=== PATIENT | female | born 1945 | race American Indian/Alaskan Native ===

== ENCOUNTER 2016-05-30 06:23 | Day surgery (SDC) | payer MEDICARE, BC ==
[2016-05-30] MEDS ORDERED: Bupivacaine 0.5% 30 ML SDV ONE (06:36)
[2016-05-30] MEDS ORDERED: ceFAZolin 1 GM in Premix Bag 1 BAG IV ONE (07:00)
[2016-05-30] MEDS ORDERED: Lactated Ringers 1,000 ML IV SCH (07:00)
[2016-05-30] MEDS ORDERED: Propofol 200 MG/20 ML SDV ONE (07:32)
[2016-05-30] MEDS ORDERED: fentaNYL 100 MCG/2 ML SDV ONE (07:32)
[2016-05-30] MEDS ORDERED: Lidocaine 0.5% 50 ML SDV ONE (07:32)
[2016-05-30] MEDS ORDERED: Povidone-Iodine 10% Soln 118.25 ML Bottle ONE (07:54)
[2016-05-30] MEDS ORDERED: Ondansetron 4 MG/2 ML SDV ONE (07:56)
--- NOTE | 2016-05-30 08:43 | OR ---
DATE OF PROCEDURE: 05/30/2016 PREOPERATIVE DIAGNOSIS: Left ring finger trigger finger. POSTOPERATIVE DIAGNOSIS: Left ring finger trigger finger. PROCEDURE: Left ring finger trigger finger release. SENIOR BENEFITS MANAGER: Ml Paiz NP. ANESTHESIA: O'Neill block with conscious sedation. ESTIMATED BLOOD LOSS: Zero. FLUID: Lactated Ringer solution. COMPLICATIONS: None. SPECIMEN: None. DISCHARGE DISPOSITION: Stable to PACU. TOURNIQUET TIME: 14 minutes. INDICATIONS: The patient was seen preoperatively in the clinic. She has had many months of triggering of her left ring finger. During the exam, I was unable to get trigger, but the A1 nodule was very palpable. She tried nonsteroidal anti-inflammatories, as well as range of motion exercises, but was not have any relief. Risks and benefits of the procedure were explained to the patient and informed consent was obtained. DETAILS OF PROCEDURE: The patient was seen preoperatively by myself and the Anesthesia staff in the preop holding area, where the operative site was marked. She was brought to the operative suite by the Anesthesia staff, where O'Neill block with minor conscious sedation was performed. Tourniquet was raised to 300 mmHg for the Neot block. The patient was then prepped and draped in a sterile manner. Time-out was called identifying the correct patient, correct procedure, correct site, and antibiotics had been with appropriate period of time. A longitudinal incision was made over the A1 sunil of the left ring finger. A self-retaining retractor was used. No blood loss was encountered. The A1 sunil was incised using a #15 blade. I then used the Ragnell to bring the tendon out and ensuring full range of motion. I then inspected with Cuca proximally, distally to make sure that the entirety of the A1 sunil was released. We then copiously irrigated with saline and placed 3-0 nylon horizontal mattress sutures followed by Betadine-soaked Adaptic followed by sterile dressing. The tourniquet was let down. The patient was then brought to the recovery room in stable condition. Kimo Aguiar DO /[id number]
[2016-05-30 09:41] VITALS: BP 134/67
== END 2016-05-30 09:15 | disposition home or self-care (01) ==
LOC: JP.SDS 06:23
PROVIDERS: ATTEND Orthopaedic Surgery
PROC: 0LN80ZZ Release Left Hand Tendon, Open Approach (ICD-10-PCS; principal; 2016-05-30)
DX: M65.342 Trigger finger, left ring finger (principal); E11.9 Type 2 diabetes mellitus without complications; Z79.4 Long term (current) use of insulin; I10 Essential (primary) hypertension; E78.00 Pure hypercholesterolemia, unspecified; Z79.899 Other long term (current) drug therapy
CPT/HCPCS: 26055; J0690; J2405; J2704; J3010; J7120